=== PATIENT | male | born 1975 | race Caucasian/White ===

== ENCOUNTER 2018-01-22 16:18 | Emergency (ER) | payer OTHER ==
[~2018-01-22] VITALS: Ht 182.9 cm; Wt 87.1 kg
[~2018-01-22 16:18] MED LIST: ATOR10 PO; CEPH500 PO; HYDACE10B PO; Norco 5-325 Ta1 EACH PO; Omeprazole20 M1; Percocet 5-3251 EACH PO; Prilosec Otc20 MG; VENL25
== END 2018-01-22 18:00 | disposition short-term general hospital (02) ==
LOC: ER 16:18
DX: R29.898 Other symptoms and signs involving the musculoskeletal system (principal); R32 Unspecified urinary incontinence; F17.200 Nicotine dependence, unspecified, uncomplicated; Z79.899 Other long term (current) drug therapy
CPT/HCPCS: 36415; 96374; 96375; 99285; J2405; J3010

== ENCOUNTER 2019-06-06 07:49 | Day surgery (SDC) | payer OTHER ==
[~2019-06-06] VITALS: Ht 182.9 cm; Wt 85.5 kg
[~2019-06-06 07:49] MED LIST changes: -Prilosec Otc20 MG; +Prilosec Otc20 MG PO; +ZESTORETIC 20-121 EA PO
== END 2019-06-06 10:00 | disposition home or self-care (01) ==
LOC: ORSCSDS 07:49
PROVIDERS: Internal Medicine Gastroenterology
PROC: 0DB58ZX Excision of Esophagus, Via Natural or Artificial Opening Endoscopic, Diagnostic (ICD-10-PCS; principal; 2019-06-06 09:00)
PROC: 0D758ZZ Dilation of Esophagus, Via Natural or Artificial Opening Endoscopic (ICD-10-PCS; principal; 2019-06-06 09:00)
PROC: 0DB68ZX Excision of Stomach, Via Natural or Artificial Opening Endoscopic, Diagnostic (ICD-10-PCS; principal; 2019-06-06 09:00)
DX: K21.0 Gastro-esophageal reflux disease with esophagitis (principal); K22.70 Barrett's esophagus without dysplasia; K44.9 Diaphragmatic hernia without obstruction or gangrene; B19.20 Unspecified viral hepatitis C without hepatic coma; R13.10 Dysphagia, unspecified; F17.210 Nicotine dependence, cigarettes, uncomplicated; Z79.899 Other long term (current) drug therapy
CPT/HCPCS: 88305; J2250; J2405; J2704; J7120

== ENCOUNTER 2022-03-27 03:29 | Emergency (ER) | payer OTHER ==
[~2022-03-27] VITALS: Ht 182.9 cm; Wt 79.4 kg
[2022-03-27] MEDS ORDERED: HYDR1TAB94 PO (04:56)
== END 2022-03-27 05:15 | disposition home or self-care (01) ==
LOC: ER 03:29
DX: S43.101A Unspecified dislocation of right acromioclavicular joint, initial encounter (principal); I10 Essential (primary) hypertension; K21.9 Gastro-esophageal reflux disease without esophagitis; F17.200 Nicotine dependence, unspecified, uncomplicated; V19.9XXA Pedal cyclist (driver) (passenger) injured in unspecified traffic accident, initial encounter; Z79.899 Other long term (current) drug therapy
CPT/HCPCS: 73030; A9270